=== PATIENT | female | born 1995 | race African-American/Black ===

== ENCOUNTER 2022-09-24 08:26 | Inpatient (IN) ==
[2022-09-24] MEDS ORDERED: SODIUM CHLORIDE 0.9% 1,000 ML IV STA (08:53)
[2022-09-24] MEDS ORDERED: PROMETHAZINE 25 MG/1 ML VIAL IM STA (08:55)
[2022-09-24 09:33] LABS: Albumin 4.1 G/DL (3.4-5.0); Bilirubin,Total 0.4 MG/DL (0.20-1.00); Calcium 10.2 MG/DL (8.5-10.1); Osmolality,Calculated 311.8 MOS/KG (273-304); Potassium 5.7 MMOL/L (3.5-5.1)
[2022-09-24] MEDS ORDERED: INSULIN REGULAR 100 UNIT/ML IV STA (09:36)
[2022-09-24] MEDS ORDERED: MAGNESIUM SULF RIDER 2 GM/50 ML PREMIX IV PRN (09:56)
[2022-09-24] MEDS ORDERED: SODIUM PHOSPHATE INJ 17 MMOL in SODIUM CHLORIDE 0.9% 250 ML IV PRN (09:56)
[2022-09-24] MEDS ORDERED: SODIUM BICARB INJ 100 MEQ in STERILE WATER INJ 400 ML IV PRN (09:56)
[2022-09-24] MEDS ORDERED: DEXTROSE 10% 250 ML BAG IV PRN ×2 (09:56)
[2022-09-24] MEDS ORDERED: MAGNESIUM SULF RIDER 4 GM/100 ML PREMIX IV PRN (09:56)
[2022-09-24] MEDS ORDERED: SODIUM CHLORIDE 0.9% 1,000 ML IV ONE (09:56)
[2022-09-24] MEDS ORDERED: INSULIN REGULAR 100 UNIT/ML IV ONE (09:56)
[2022-09-24] MEDS ORDERED: POTASSIUM CHLORIDE RIDER 10 MEQ/100 ML PREMIX IV PRN (09:56)
[2022-09-24] MEDS ORDERED: INSULIN REGULAR DRIP 100 ML IV SCH (10:00)
[2022-09-24 10:01] LABS: Basophils % 0.5 % (0.0-0.8); Immature Granulocytes % 0.5 %; Immature Granulocytes Absolute 0.02 #
[2022-09-24 10:13] LABS: Bilirubin,Urine Negative (Negative); Blood, Urine Small mg/dL (Negative); Glucose,Urine (UA) >=500 mg/dL (Negative); Ketones,Urine 20 mg/dL (Negative); Mucus,Urine Occasional /LPF (Occasional); Nitrite,Urine Negative (Negative); Protein,Urine Negative (Negative); RBC,Urine 1 /HPF (0-4); Urine Appearance CLEAR (Clear); Urine Color Colorless (Yellow); Urine Specific Gravity 1.026 (1.001-1.035); Urine Urobilinogen < 2.0 eU/dL (<2.0)
[2022-09-24 10:23] LABS: Eosinophils % 0.2 % (0.00-10.9); Hematocrit 39.6 VOL% (35.7-47.0); Lymphocytes # 1.2 10*3/uL (1.4-4.0); Lymphocytes % 27.3 % (21.3-54.2); Mean Corpuscular Volume 82.8 FL (87-102); Mean Platelet Volume 10.8 FL (9.6-12.0); Monocytes # 0.2 10*3/uL (0.11-0.8); Monocytes % 5.5 % (1.7-12.7); Platelet Count 366 T/CUMM (130-400); Red Blood Count 4.78 MC/CUMM (3.8-5.5); Red Cell Distribution Width 19.2 % (9.3-17.3); White Blood Count 4.2 T/CUMM (4-12)
[2022-09-24 10:27] LABS: Hemoglobin 11.5 GM/DL (12.0-16.0)
[2022-09-24] MEDS: PANTOPRAZOLE 40 MG TABLET PO SCH (10:30)
[2022-09-24 10:34] LABS: Barbiturates Screen,Urine Negative (Negative); Benzodiazepines Screen,Urine Negative (Negative); Cannabinoid Screen,Urine Negative (Negative); Opiate Screen,Urine Negative (Negative); Phencyclidine Screen,Urine Negative (Negative)
[2022-09-24] MEDS: ENOXAPARIN 30 MG/0.3 ML SYRINGE SUBCUT SCH (10:35)
[2022-09-24 10:41] VITALS: BP 114/85
[2022-09-24] MEDS: SODIUM CHLORIDE 0.9% 1,000 ML IV SCH ×2 (11:44→13:39)
[2022-09-24] MEDS ORDERED: LACTATED RINGERS 1,000 ML IV ONE (13:50)
[2022-09-24 14:51] LABS: Calcium 8.9 MG/DL (8.5-10.1); Osmolality,Calculated 305.1 MOS/KG (273-304)
[2022-09-24] MEDS ORDERED: SODIUM CHLORIDE 0.9% 1,000 ML IV SCH (15:00)
[2022-09-24 18:26] LABS: Calcium 8.1 MG/DL (8.5-10.1); Potassium 3.8 MMOL/L (3.5-5.1)
[2022-09-24] MEDS: SODIUM CHLOR 0.45% KCL 20 MEQ 20 MEQ/1,000 ML BAG IV SCH (19:58)
[2022-09-24] MEDS: DEXT 5% NACL 0.45% KCL 20 MEQ 20 MEQ/1,000 ML BAG IV SCH (21:10)
[2022-09-24 22:31] LABS: Calcium 7.7 MG/DL (8.5-10.1); Potassium 3.4 MMOL/L (3.5-5.1)
[2022-09-24] MEDS: SODIUM CHLORIDE 0.45% 1,000 ML IV SCH (22:50)
[2022-09-25] MEDS: INSULIN LISPRO 100 UNIT/ML SUBCUT SCH ×4 (00:21→11:47)
[2022-09-25] MEDS: SODIUM CHLOR 0.45% KCL 20 MEQ 20 MEQ/1,000 ML BAG IV SCH (00:21)
[2022-09-25] MEDS: DEXT 5% NACL 0.45% KCL 20 MEQ 20 MEQ/1,000 ML BAG IV SCH (01:53)
[2022-09-25] MEDS ORDERED: DEXTROSE 50% 25 GM/50 ML VIAL IV PRN (02:27)
[2022-09-25] MEDS ORDERED: GLUCAGON 1 MG VIAL IM PRN (02:27)
[2022-09-25] MEDS: SODIUM CHLORIDE 0.45% 1,000 ML IV SCH ×2 (02:52→06:50)
[2022-09-25 03:31] LABS: Calcium 7.2 MG/DL (8.5-10.1); Osmolality,Calculated 281.7 MOS/KG (273-304); Potassium 3.1 MMOL/L (3.5-5.1)
[2022-09-25] MEDS ORDERED: CALCIUM GLUCONATE RIDER 1,000 MG/50 ML PREMIX IV ONE (07:28)
[2022-09-25] MEDS: POTASSIUM CHLORIDE 20 MEQ TABLET PO ONE ×2 (07:55→08:01)
[2022-09-25] MEDS ORDERED: POTASSIUM BICARB EFFERVESCENT 20 MEQ TAB.EFF PO ONE (07:58)
[2022-09-25] MEDS: PANTOPRAZOLE 40 MG TABLET PO SCH (08:06)
[2022-09-25] MEDS: ENOXAPARIN 30 MG/0.3 ML SYRINGE SUBCUT SCH (09:33)
[2022-09-25] MEDS ORDERED: INSULIN GLARGINE 100 UNIT/ML SUBCUT SCH (21:00)
== END 2022-09-25 14:15 | disposition home or self-care (01) | DRG 420 ==
LOC: EDUNIT# → EDBD → N.ED 08:26 → N.EDINP 10:25 → N.ICU 10:34
PROVIDERS: ADMIT Internal Medicine; ATTEND Internal Medicine